=== PATIENT | female | born 1945 ===

== ENCOUNTER 2017-09-17 05:30 | Day surgery (SDC) | payer OTHER ==
[~2017-09-17 05:30] MED LIST: HYZAAR 100-251 EACH PO; JENTADUETO 2.51 EAC2 PO; METOPROLOL SUCC25 MG PO; NORVASC2.5 MG PO; PROTONIX40 MG PO; SYNTHROID150 MCG PO; ZOCOR20 MG PO
== END 2017-09-17 14:45 | disposition home or self-care (01) ==
LOC: CIR.AMB 05:30
DX: M65.842 Other synovitis and tenosynovitis, left hand (principal); M65.10 Other infective (teno)synovitis, unspecified site